=== PATIENT | female | born 1955 ===

== ENCOUNTER 2017-10-16 05:50 | Day surgery (SDC) | payer OTHER | END 2017-10-16 10:10 | disposition home or self-care (01) | LOC: AMB-ENDOS 05:50 | DX: D12.0 Benign neoplasm of cecum (principal); K64.8 Other hemorrhoids ==

== ENCOUNTER 2018-12-03 05:16 | Day surgery (SDC) | payer OTHER | END 2018-12-03 10:45 | disposition home or self-care (01) | LOC: AMB-ENDOS 05:16 | DX: D12.3 Benign neoplasm of transverse colon (principal); K64.8 Other hemorrhoids ==